=== PATIENT | female | born 1975 | race Caucasian/White ===

== ENCOUNTER 2016-07-21 15:49 | Emergency (ER) | payer OTHER ==
[2016-07-21 15:55] VITALS: RESP 16; TEMP 98; BMI 21.6
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
[2016-07-21 18:02] VITALS: BP 160/100; PULSE 76; O2SAT 97
--- NOTE | 2016-07-22 10:31 | CARD ---
APPROVED REPORT EKG Measurement Heart [id number] ID [id number] <Conclusion> Normal sinus rhythm Normal ECG NSSTW changes no longer present c/w ECG 04/11/15
== END 2016-07-21 18:19 | disposition home or self-care (01) ==
LOC: ED 15:49
DX: Z04.1 Encounter for examination and observation following transport accident (principal); V47.0XXA Car driver injured in collision with fixed or stationary object in nontraffic accident, initial encounter; Y92.410 Unspecified street and highway as the place of occurrence of the external cause

== ENCOUNTER 2017-01-14 09:43 | Emergency (ER) | payer OTHER ==
[2017-01-14 09:55] VITALS: BMI 24.3
[2017-01-14 10:05] VITALS: O2SAT 100
[2017-01-14] MEDS ORDERED: Sodium Chloride 0.9% 1,000 ML IV STA (10:25)
--- NOTE | 2017-01-14 10:32 | ED PDOC ---
Arrival/HPI - General Chief Complaint: Abdominal Pain Time Seen by Provider: 01/14/17 10:23 Historian: Patient - History of Present Illness Narrative History of Present Illness (Text): 01/14/17 10:27 41-year-old female presents today with nausea vomiting and diarrhea x 5 days. pt c/o subjective fevers. states she hasnt been able to keep any food or drink down. pt states pain is in lower abdomen and epigastric. pt denies cp or sob. no back pain. denies urinary symptoms. denies recent travel or sick contacts. denies recent abx usage. pt states she has had approx 5 episodes of diarrhea daily x 4 days and today she hasnt had any diarrhea but states she hasnt eaten anything. no other complaints. Symptom Onset: Gradual Symptom Course: Unchanged Severity Level: Mild Past Medical History - Provider Review Nursing Documentation Reviewed: Yes - Travel History Have you recently traveled outside [place] w/in the past 3 mons?: No - Infectious Disease Hx of Infectious Diseases: None - Tetanus Immunization Tetanus Immunization: Unknown - Cardiac Hx Cardiac Disorders: Yes Hx Hypertension: Yes - Psychiatric Hx Substance Use: No - Surgical History Hx Section: Yes - Anesthesia Hx Anesthesia: Yes Hx Anesthesia Reactions: No Hx Malignant Hyperthermia: No Family/Social History - Physician Review Nursing Documentation Reviewed: Yes Family/Social History: Unknown Family HX Smoking Status: Never Smoked Hx Alcohol Use: No Hx Substance Use: No Allergies/Home Meds Allergies/Adverse Reactions: Allergies No Known Allergies Allergy (Verified 01/14/17 10:05) Home Medications: Home Meds Medication Instructions Recorded Confirmed hydroCHLOROthiazide [Hydrodiuril] 25 mg PO DAILY 07/21/16 01/14/17 Lisinopril [Zestril] 20 mg PO DAILY 01/14/17 01/14/17 amLODIPine [Norvasc] 10 mg PO DAILY 01/14/17 01/14/17 Review of Systems - Review of Systems Constitutional: Fevers. absent: Fatigue ENT: Sore Throat. absent: Sinus Congestion Respiratory: absent: SOB, Cough Cardiovascular: absent: Chest Pain, Palpitations Gastrointestinal: Abdominal Pain, Diarrhea, Nausea, Vomiting. absent: Constipation Genitourinary Female: absent: Dysuria, Hematuria Musculoskeletal: absent: Arthralgias, Back Pain, Neck Pain Skin: absent: Rash, Pruritis Neurological: absent: Headache, Dizziness Psychiatric: absent: Anxiety, Depression, Suicidal Ideation Physical Exam Vital Signs Reviewed: Yes Vital Signs Temp Pulse Resp BP Pulse Ox 01/14/17 15:28 69 18 138/89 100 01/14/17 13:24 74 18 145/96 H 100 01/14/17 12:37 98.2 F 88 19 150/104 H 100 01/14/17 11:31 78 18 140/94 H 100 01/14/17 10:09 98.7 F 77 18 165/101 H 100 01/14/17 09:55 98.2 F 87 18 163/102 H 100 Temperature: Afebrile Blood Pressure: Hypertensive Pulse: Regular Respiratory Rate: Normal Appearance: Positive for: Well-Appearing, Non-Toxic, Comfortable Pain Distress: None Mental Status: Positive for: Alert and Oriented X 3 - Systems Exam Head: Present: Atraumatic Mouth: Present: Moist Mucous Membranes Pharnyx: Present: Normal Neck: Present: Normal Range of Motion Respiratory/Chest: Present: Clear to Auscultation, Good Air Exchange. No: Respiratory Distress, Accessory Muscle Use Cardiovascular: Present: Regular Rate and Rhythm, Normal S1, S2. No: Murmurs Abdomen: Present: Tenderness (minimal epigastric tenderness, minimal suprapubic tenderness; ), Normal Bowel Sounds. No: Distention, Peritoneal Signs, Rebound, Guarding Back: Present: Normal Inspection. No: CVA Tenderness, Midline Tenderness, Paraspinal Tenderness Upper Extremity: Present: Normal Inspection Lower Extremity: Present: Normal Inspection Neurological: Present: GCS=15 Skin: Present: Warm, Dry, Normal Color. No: Rashes Psychiatric: Present: Alert, Oriented x 3 Medical Decision Making ED Course and Treatment: 01/14/17 10:47 Patient is nontoxic well appearing with stable vital signs presenting with nausea/vomiting/diarrhea and occasional abdominal pain mostly in epigastric region. CBC wnl CMP wnl Lipase wnl Urinalysis small blood CAT scan:FINDINGS: LOWER THORAX: Unremarkable. LIVER: Unremarkable. No gross lesion or ductal dilatation. GALLBLADDER AND BILE DUCTS: There is a stone in the gallbladder. There is no inflammation PANCREAS: Unremarkable. No gross lesion or ductal dilatation. SPLEEN: Unremarkable. ADRENALS: Unremarkable. No mass. KIDNEYS AND URETERS: There is a solitary left kidney VASCULATURE: Unremarkable. No aortic aneurysm. BOWEL: Unremarkable. No obstruction. No gross mural thickening. APPENDIX: Normal appendix. PERITONEUM: Unremarkable. No free fluid. No free air. LYMPH NODES: Unremarkable. No enlarged lymph nodes. BLADDER: Unremarkable. REPRODUCTIVE: There is a large right adnexal cyst measuring 9.5 cm AP x 6.9 cm wide by 5.4 cm in height. There are no solid elements or mural enhancement. Followup is recommended to rule out cystic neoplasm BONES: No acute fracture. OTHER FINDINGS: None. IMPRESSION: There is a large right adnexal cyst measuring 9.5 cm AP x 6.9 cm wide by 5.4 cm in height. There are no solid elements or mural enhancement. Followup is recommended to rule out cystic neoplasm US transvaginal: FINDINGS: UTERUS: Measures 8.7 x 4.0 x 5.3 cm. Normal in size and appearance. No fibroid or other mass lesion seen. ENDOMETRIUM: Measures 7 mm in diameter. There is small amount of fluid in the endometrial canal. CERVIX: No cervical abnormality identified. RIGHT OVARY: There is a large 8.6 x 6.7 x 9.6 cm cystic mass in the adnexa with homogeneous internal echoes. LEFT OVARY: Not visualized. FREE FLUID: No significant free fluid noted. OTHER FINDINGS: None. IMPRESSION: Large complex cystic mass in the right adnexa. The differential considerations include hemorrhagic cyst, endometrioma and cystic neoplasm. Gynecologic consult is warranted. Patient reassessment: pt non toxic well appearing; no distress stable vitals. abdomen, soft non tender, non distended. 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 anaya. Patient to follow-up with the outpatient [facility] in [place] and return immediately if she develops any pain Patient reassessment: Patient nontoxic well-appearing no distress. I discussed all results in depth with the patient and advised follow-up with the [facility] in [place] regarding her right-sided adnexal mass. I've advised the patient to stick to a Brat diet and increase fluids. Advised the patient to follow up with GI doctor within the next 2 days. Advised follow- up with primary care physician within the next 2 days. I've advised immediately return if symptoms worsen persist or if new concerning symptoms develop Patient verbalizes understanding of discharge instructions and need for immediate followup. all aspects of this case were discussed the attending of record. Impression: Diarrhea, adnexal mass Motrin every 6 hours as needed for pain Pepcid one tablet daily BRAT DIet; Bananas apples, rice, toast increase fluids Follow up with the [facility] within the next 2 days regarding your right sided mass. Follow up with primary care physician within the next 2 days Return immediately if symptoms worsen persist or if new symptoms develop: High fevers, increasing pain, vomiting, diarrhea or any other concerning symptoms develop - Lab Interpretations Lab Results: 01/14/17 11:00 01/14/17 11:00 Lab Results 01/14/17 13:30: Urine Color Yellow, Urine Appearance Sl cloudy, Urine pH 6.0, Ur Specific [place] 1.025, Urine Protein 30 H, Urine Glucose (UA) Negative, Urine Ketones 15 H, Urine Blood Small H, Urine Nitrate Negative, Urine Bilirubin Negative, Urine Urobilinogen 0.2, Ur Leukocyte Esterase Negative, Urine RBC 0 - 2, Urine WBC 0 - 2, Ur Epithelial Cells Many, Urine Bacteria Few 01/14/17 11:00: WBC 4.5 D, RBC 4.07, Hgb 11.2 L, Hct 33.4 L, MCV 82.1, MCH 27.5 , MCHC 33.5, RDW 13.4, Plt Count 261, MPV 11.4 H, Gran % 52.3, Lymph % (Auto) 35.3 H, Dolores % (Auto) 11.3 H, Eos % (Auto) 0.7 L, Baso % (Auto) 0.4, Gran # 2.35 , Lymph # 1.6, Dolores # 0.5, Eos # 0.0, Baso # 0.02 01/14/17 11:00: Sodium 136, Potassium 3.7, Chloride 108 H, Carbon Dioxide 20 L, Anion Gap 12, BUN 13, Creatinine 0.9, Est GFR ( Amer) > 60, Est GFR (Non- Af Amer) > 60, Random Glucose 83, Calcium 8.5, Total Bilirubin 0.4, AST 31, ALT 36, Alkaline Phosphatase 58, Total Protein 7.1, Albumin 3.4, Globulin 3.7, Albumin/Globulin Ratio 0.9 L, Lipase 56 - RAD Interpretation Radiology Orders: 01/14/17 10:27 ABD & PELVIS IV CONTRAST ONLY [CT] Stat 01/14/17 14:21 TRANSVAGINAL [US] Stat - Medication Orders Current Medication Orders: Discontinued Medications Sodium Chloride (Sodium Chloride 0.9%) 1,000 mls @ 999 mls/hr IV .Q1H1M STA Stop: 01/14/17 11:25 Last Admin: 01/14/17 10:53 Dose: 999 mls/hr eMAR Start Stop Document 01/14/17 10:53 OCS (Rec: 01/14/17 10:53 [place] [facility] [id number] Intravenous Solution Start Date 01/14/17 Start Time 10:53 Disposition/Present on Arrival - Present on Arrival Any Indicators Present on Arrival: No History of DVT/PE: No History of Uncontrolled Diabetes: No Urinary Catheter: No History of Decub. Ulcer: No History Surgical Site Infection Following: None - Disposition Have Diagnosis and Disposition been Completed?: Yes Diagnosis: Diarrhea, Adnexal mass Disposition: HOME/ ROUTINE Disposition Time: 16:57 Patient Plan: Discharge Condition: GOOD Discharge Instructions (ExitCare): Acute Diarrhea (ED) Additional Instructions: Motrin every 6 hours as needed for pain Pepcid one tablet daily BRAT DIet; Bananas apples, rice, toast increase fluids Follow up with the [facility] within the next 2 days regarding your right sided mass. Follow up with primary care physician within the next 2 days Return immediately if symptoms worsen persist or if new symptoms develop: High fevers, increasing pain, vomiting, diarrhea or any other concerning symptoms develop Prescriptions: Famotidine [Pepcid] 20 mg PO DAILY #30 tab [facility] - Follow up with primary Donn Magaña MD [Medical Doctor] - [place] up with primary [facility] [place] - Follow up with primary Forms: [employer] (Kiswahili), WORK NOTE
[2017-01-14 11:12] LABS: BASO # 0.02 K/mm3 (0.0-2.0); BASO % 0.4 % (0.0-3.0); EOS % 0.7 % (1.5-5.0); GRAN # 2.35 (1.4-6.5); GRAN % 52.3 % (50.0-68.0); HEMATOCRIT 33.4 % (36.0-48.0); LYMPH # 1.6 (1.2-3.4); LYMPH % 35.3 % (22.0-35.0); MEAN CELL VOLUME 82.1 fl (80.0-105.0); MEAN CORPUSCULAR HEMOGLOBIN 27.5 pg (25.0-35.0); MEAN CORPUSCULAR HGB CONC 33.5 g/dl (31.0-37.0); MEAN PLATELET VOLUME 11.4 fl (7.0-11.0); MONO # 0.5 (0.1-0.6); MONO % 11.3 % (1.0-6.0); RED CELL DISTRIBUTION WIDTH 13.4 % (11.5-14.5); WHITE BLOOD COUNT 4.5 10^3/ul (4.5-11.0)
[2017-01-14 11:24] LABS: ALB/GLOB RATIO 0.9 (1.1-1.8); ALKALINE PHOSPHATASE 58 U/L (38-126); ALT/SGPT 36 U/L (7-56); AST/SGOT 31 U/L (14-36); BILIRUBIN,TOTAL 0.4 mg/dL (0.2-1.3); BLOOD UREA NITROGEN 13 mg/dL (7-21); CALCIUM 8.5 mg/dL (8.4-10.5); CARBON DIOXIDE 20 mmol/L (21-33); CHLORIDE 108 mmol/L (98-107); GFR AFRICAN-AMERICAN > 60; GLUCOSE,RANDOM 83 mg/dL (70-110); LIPASE 56 U/L (23-300); POTASSIUM 3.7 mmol/L (3.6-5.0); SODIUM 136 mmol/L (132-148); TOTAL PROTEIN 7.1 g/dL (5.8-8.3)
[2017-01-14 12:38] VITALS: TEMP 98.2
[2017-01-14] MEDS ORDERED: Iohexol 350 MG/100 ML VIAL ONE (12:54)
[2017-01-14 13:25] VITALS: RESP 18
--- NOTE | 2017-01-14 13:41 | CT ---
PROCEDURE: CT Abdomen and Pelvis with contrast HISTORY: abd pain COMPARISON: None. TECHNIQUE: Contrast dose: 100 cc of Omni 350 Radiation dose: Total exam DLP = 398 mGy-cm. This CT exam was performed using one or more of the following dose reduction techniques: Automated exposure control, adjustment of the mA and/or kV according to patient size, and/or use of iterative reconstruction technique. FINDINGS: LOWER THORAX: Unremarkable. LIVER: Unremarkable. No gross lesion or ductal dilatation. GALLBLADDER AND BILE DUCTS: There is a stone in the gallbladder. There is no inflammation PANCREAS: Unremarkable. No gross lesion or ductal dilatation. SPLEEN: Unremarkable. ADRENALS: Unremarkable. No mass. KIDNEYS AND URETERS: There is a solitary left kidney VASCULATURE: Unremarkable. No aortic aneurysm. BOWEL: Unremarkable. No obstruction. No gross mural thickening. APPENDIX: Normal appendix. PERITONEUM: Unremarkable. No free fluid. No free air. LYMPH NODES: Unremarkable. No enlarged lymph nodes. BLADDER: Unremarkable. REPRODUCTIVE: There is a large right adnexal cyst measuring 9.5 cm AP x 6.9 cm wide by 5.4 cm in height. There are no solid elements or mural enhancement. Followup is recommended to rule out cystic neoplasm BONES: No acute fracture. OTHER FINDINGS: None. IMPRESSION: There is a large right adnexal cyst measuring 9.5 cm AP x 6.9 cm wide by 5.4 cm in height. There are no solid elements or mural enhancement. Followup is recommended to rule out cystic neoplasm
[2017-01-14 14:12] LABS: URINE BILIRUBIN NEGATIVE (NEGATIVE); URINE BLOOD SMALL (NEGATIVE); URINE GLUCOSE (UA) NEGATIVE (NEGATIVE); URINE KETONE 15 mg/dL (NEGATIVE); URINE LEUKOCYTE ESTERASE NEGATIVE Leu/uL (NEGATIVE); URINE PROTEIN 30 mg/dL (<30 mg/dL); URINE UROBILINOGEN 0.2 E.U./dL (<1 E.U./dL)
[2017-01-14 14:13] LABS: URINE APPEARANCE SL CLOUDY (CLEAR); URINE COLOR YELLOW (YELLOW)
[2017-01-14 14:23] LABS: URINE BACTERIA FEW (NEG); URINE EPITHELIAL CELLS MANY /hpf (0-5); URINE RBC 0 - 2 /hpf (0-2); URINE WBC 0 - 2 /hpf (0-6)
--- NOTE | 2017-01-14 15:20 | US ---
HISTORY: pain cyst/ r/o torsion COMPARISON: CT abdomen and pelvis from 01/14/2017. TECHNIQUE: Transvaginal pelvic ultrasound was performed. FINDINGS: UTERUS: Measures 8.7 x 4.0 x 5.3 cm. Normal in size and appearance. No fibroid or other mass lesion seen. ENDOMETRIUM: Measures 7 mm in diameter. There is small amount of fluid in the endometrial canal. CERVIX: No cervical abnormality identified. RIGHT OVARY: There is a large 8.6 x 6.7 x 9.6 cm cystic mass in the adnexa with homogeneous internal echoes. LEFT OVARY: Not visualized. FREE FLUID: No significant free fluid noted. OTHER FINDINGS: None. IMPRESSION: Large complex cystic mass in the right adnexa. The differential considerations include hemorrhagic cyst, endometrioma and cystic neoplasm. Gynecologic consult is warranted.
[2017-01-14 15:28] VITALS: BP 138/89; PULSE 69
== END 2017-01-14 17:04 | disposition home or self-care (01) ==
LOC: ED 09:43
DX: N85.8 Other specified noninflammatory disorders of uterus (principal); R19.7 Diarrhea, unspecified
CPT/HCPCS: 74177; 76830; 80053; 81001; 83690; 85025; 99284; J7040; Q9967

== ENCOUNTER 2018-06-07 15:41 | Emergency (ER) | payer OTHER ==
[2018-06-07 15:44] VITALS: BMI 22.8
--- NOTE | 2018-06-07 17:01 | ED PDOC ---
Arrival/HPI - General Chief Complaint: Back Pain Time Seen by Provider: 06/07/18 16:06 Historian: Patient - History of Present Illness Narrative History of Present Illness (Text): 06/07/18 16:55 42 year old F with pmh of Breast CA (last chemo 04/14/18, now on radiation therapy) presents complaining of lower back pain s/p fall at work. Patient reports falling off chair and landing on butt. She denies any LOC, head or neck trauma. Patient denies any fevers, chills, headache, dizziness, chest pain, shortness of breath, dyspnea on exertion, cough, abdominal pain, nausea, vomiting, diarrhea, neck pain, or any other complaint. 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: Work Past Medical History - Provider Review Nursing Documentation Reviewed: Yes Primary Care Physician: Panchito Cummings MD - Infectious Disease Hx of Infectious Diseases: None - Tetanus Immunization Tetanus Immunization: Unknown - Cardiac Hx Cardiac Disorders: Yes Hx Hypertension: Yes - Psychiatric Hx Substance Use: No - Surgical History Hx Section: Yes - Anesthesia Hx Anesthesia: Yes Hx Anesthesia Reactions: No Hx Malignant Hyperthermia: No Family/Social History - Physician Review Nursing Documentation Reviewed: Yes Family/Social History: Unknown Family HX Smoking Status: Never Smoked Hx Alcohol Use: No Hx Substance Use: No Allergies/Home Meds Allergies/Adverse Reactions: Allergies No Known Allergies Allergy (Verified 01/14/17 10:05) Home Medications: Home Meds Medication Instructions Recorded Confirmed hydroCHLOROthiazide [Hydrodiuril] 25 mg PO DAILY 07/21/16 01/14/17 Lisinopril [Zestril] 20 mg PO DAILY 01/14/17 01/14/17 amLODIPine [Norvasc] 10 mg PO DAILY 01/14/17 01/14/17 Review of Systems - Physician Review All systems were reviewed & negative as marked: Yes - Review of Systems Constitutional: absent: Fatigue, Fevers ENT: absent: Sore Throat, Rhinorrhea, Epistaxis Respiratory: absent: SOB, Cough Cardiovascular: absent: Chest Pain, Palpitations Gastrointestinal: absent: Abdominal Pain, Diarrhea, Nausea, Vomiting Genitourinary Female: absent: Dysuria Musculoskeletal: Back Pain (lower) Skin: absent: Rash, Cellulitis Neurological: absent: Headache, Dizziness Physical Exam - Physical Exam Narrative Physical Exam (Text): 06/07/18 17:12 Gen: VS reviewed, alert, well developed, well nourished, nontoxic, mild distress. ENT: normal pharynx. Eye: EOMI, PERRL. Neck: no JVD, supple, no adenopathy. CV: regular rate, regular rhythm, no rubs, no murmur, no gallops, S1, S2, pulses equal and strong. Pulm: no distress, clear to auscultation, no wheeze, no rhonchi, breath sounds equal, no rales. Abd: soft, nontender, no guarding, no rebound, no rigidity, normal bowel sounds. Ext: no edema. Skin: good color, no rash, no cyanosis. Psych: responds appropriately to questions, normal affect. Neuro: oriented x 3, CN2-12 intact grossly, motor intact, sensation intact. Medical Decision Making ED Course and Treatment: 06/07/18 17:00 Impression: 42 year old F presents complaining of lower back pain s/p fall at work. She denies any LOC, head or neck trauma Plan: -- X-Ray LS spine with OBL -- Reassess and disposition Prior Visits: Notes and results from previous visits were reviewed. 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 I have reviewed the chart and agree that the record accurately reflects my personal performance of the history, physical exam, medical decision making, and the department course for this patient. I have also personally directed, reviewed, and agree with the discharge instructions and disposition. Disposition/Present on Arrival - Present on Arrival Any Indicators Present on Arrival: No History of DVT/PE: No History of Uncontrolled Diabetes: No Urinary Catheter: No History of Decub. Ulcer: No History Surgical Site Infection Following: None - Disposition Have Diagnosis and Disposition been Completed?: Yes Diagnosis: Low back pain Disposition: HOME/ ROUTINE Disposition Time: 18:00 Patient Plan: Discharge Condition: STABLE Discharge Instructions (ExitCare): Low Back Pain in Adults Additional Instructions: follow up with your primary care doctor for persistent pain. Referrals: Panchito Cummings MD [Primary Care Provider] - Follow up with primary Forms: [employer] Connect (Malay), WORK NOTE
[2018-06-07 17:57] VITALS: RESP 18; TEMP 97.5
[2018-06-07 18:25] VITALS: BP 132/70; PULSE 80; O2SAT 98
--- NOTE | 2018-06-08 09:31 | RAD ---
Date of service: 06/07/2018 PROCEDURE: Radiographs of the Lumbar Spine. HISTORY: pain COMPARISON: No prior. TECHNIQUE: Four views obtained. FINDINGS: BONES: Normal alignment. No listhesis. No fracture. DISC SPACES: Unremarkable. OTHER FINDINGS: None. IMPRESSION: Unremarkable radiographs of the lumbar spine.
== END 2018-06-07 18:31 | disposition home or self-care (01) ==
LOC: ED 15:41
DX: M54.5 Low back pain (principal); Z85.3 Personal history of malignant neoplasm of breast